=== PATIENT | male | born 1955 | race Caucasian/White ===

== ENCOUNTER 2023-03-04 09:27 | Day surgery (SDC) | payer MEDICARE, MEDICAID ==
[~2023-03-04] VITALS: Ht 167.6 cm; Wt 90.7 kg
[~2023-03-04 09:27] MED LIST: AMLODIPINE BESY10 MG PO; BAYER ASPIRIN E81 MG PO; LOSARTAN POTASS1 TA4 PO; MAGNESIUM OXID400 M1 PO; MULTIVITAMIN ME1 TAB PO; POT CHLORIDE20 ME2 PO; VITAMIN B-121000 MCG PO; [UNRECOGNIZED DRUG - OTHER] PO
[2023-03-04 12:01] VITALS: BP 154/78
== END 2023-03-04 11:55 | disposition home or self-care (01) ==
LOC: ENDO 09:27 → ORM 13:10
PROVIDERS: ATTEND Internal Medicine Gastroenterology
PROC: 0DB98ZX Excision of Duodenum, Via Natural or Artificial Opening Endoscopic, Diagnostic (ICD-10-PCS; principal; 2023-03-04)
PROC: 0DB78ZX Excision of Stomach, Pylorus, Via Natural or Artificial Opening Endoscopic, Diagnostic (ICD-10-PCS; 2023-03-04)
PROC: 0DB48ZX Excision of Esophagogastric Junction, Via Natural or Artificial Opening Endoscopic, Diagnostic (ICD-10-PCS; 2023-03-04)
PROC: 0DJD8ZZ Inspection of Lower Intestinal Tract, Via Natural or Artificial Opening Endoscopic (ICD-10-PCS; 2023-03-04)
DX: K29.70 Gastritis, unspecified, without bleeding (principal); K29.80 Duodenitis without bleeding; K44.9 Diaphragmatic hernia without obstruction or gangrene; Z12.11 Encounter for screening for malignant neoplasm of colon; K57.30 Diverticulosis of large intestine without perforation or abscess without bleeding; K64.8 Other hemorrhoids; I10 Essential (primary) hypertension; Z80.0 Family history of malignant neoplasm of digestive organs
CPT/HCPCS: 43239; G0105

== ENCOUNTER 2024-09-30 10:23 | Inpatient (IN) | payer MEDICARE, MEDICAID ==
[~2024-09-30] VITALS: Ht 167.6 cm; Wt 78.4 kg
[2024-09-30] MEDS ORDERED: SYNTHROID25 MCG PO (10:46)
[2024-09-30] MEDS ORDERED: NORMODYNE/TRAN100 MG PO (10:47)
[2024-09-30] MEDS ORDERED: BETAMETH VAL0.1 % EX (10:48)
[2024-09-30] MEDS ORDERED: METHYLPRED4 MG PO (10:49)
[2024-09-30] MEDS ORDERED: LORTAB 5/3255 MG PO (10:50)
[2024-09-30 10:51] LABS: ALBUMIN 3.9 g/dL (3.2-5.0); BILIRUBIN, TOTAL 0.8 mg/dL (0.2-1.3); POTASSIUM 4.3 mmol/l (3.5-5.1); TOTAL PROTEIN 6.6 g/dL (6.3-8.2)
[2024-09-30 10:52] LABS: HEMATOCRIT 45.4 % (39.0-50.0); HEMOGLOBIN 14.7 g/dl (14.0-18.0); IMMATURE GRANULOCYTES 1.5 % (0.0-5.0); LYMPH% 11.2 % (15-41); MEAN CELL VOLUME 94.2 fL CALC (80.0-100.0); MEAN CORPUSCULAR HGB 30.5 pG CALC (26.0-32.0); MEAN CORPUSCULAR HGB CONC 32.4 g/dL CAL (32.0-36.0); MONO% 1.8 % (2-13); NEUT# 7.56 thou/uL (1.82-7.42); NEUT% 85.5 % (42-76); RED BLOOD COUNT 4.82 mill/uL (4.70-6.10); RED CELL DISTRI WIDTH 12.7 % (11.5-15.5)
[2024-09-30 11:00] VITALS: BP 147/74
[2024-09-30] MEDS ORDERED: ACETAMINOPHEN 325 MG/TAB PO PRN (11:05)
[2024-09-30] MEDS ORDERED: ALUM & MAG HYDROX-SIMETHICONE 30 ML PO PRN (11:10)
[2024-09-30] MEDS ORDERED: DEXTROSE 250 ML IV PRN (11:30)
[2024-09-30] MEDS ORDERED: DEXTROSE 50% 50 ML/SYR IV PRN (11:30)
--- NOTE | 2024-09-30 11:30 | NUR ---
PT IS ADMITTED TO THE FLOOR WITH SOB AND PNEUMONIA; PROVIDER IS AT BEDSIDE. PT IS A&O X4; STABLE. COUGH- NON PRODUCTIVE. PT IS ON TELE- NSR. PT CAN MOVE ALL EXTREMITIES. PT CAN MAKE HIS NEEDS KNOWN; PT STAES NO FURTHER NEEDS AT THIS TIME. BED ALARM IS ON AND CALL LIGHT IS WITHIN REACH.
[2024-09-30] MEDS ORDERED: PIPERACILLIN Sodium-Tazobactam 3.375 GM in SODIUM CHLORIDE 0.9% 100 ML IV SCH (12:00)
[2024-09-30] MEDS ORDERED: methylPREDNISolone Sod Succ 40 MG/ML SDV IV SCH (12:00)
[2024-09-30] MEDS ORDERED: guaiFENesin-CODEINE 200-20 MG/10 ML UDC PO PRN (12:35)
[2024-09-30] MEDS ORDERED: IPRATROPIUM-Albuterol 0.5MG-2.5MG/3 ML NEB PRN (12:35)
[2024-09-30] MEDS ORDERED: HYDROcodone 5 MG/Acetaminophen 325 MG/COMBO PO PRN (12:55)
[2024-09-30] MEDS ORDERED: INSULIN LISPRO 100 UNITS/ML ML SC SCH (13:00)
[2024-09-30] MEDS ORDERED: IPRATROPIUM-Albuterol 0.5MG-2.5MG/3 ML IN SCH (15:00)
[2024-09-30 15:29] VITALS: BP 137/73
--- NOTE | 2024-09-30 16:50 | NUR ---
PT'S CONDITION HAS IMPROVED. HEAD PAIN HAS DECREASED; PT IS STILL COUGHING THOUGH; ITS BECOMING MORE PRODUCTIVE. PT STATES WHEN HE COUGHS HARD; IT CREATES A SHARP PAIN AND HIS HEAD STARTS TO SWEAT. WILL MEDICATE NEEDED. BED ALARM IS ON; CALL LIGHT IS WITHIN REACH.
[2024-09-30 18:30] VITALS: BP 128/64
[2024-09-30 18:48] VITALS: BP 128/64
--- NOTE | 2024-09-30 20:00 | NUR ---
RECEIVED REPORT FROM NURSE IKE, PATIENT RESTING IN BED, RT IN ROOM, PATINET ON 3 LPM VIA NC. PATIENT TIGHT NON PRODUCTIVE COUGH, LUNG SOUNDS COARSE, SALINE LOCK NOTED ON RAC G 20 PATENT FLUSHES WELL, ON TELEMETRY, ACTIVE BOWEL SOUNDS, PRN TYLENOL GIVEN PRIOR TO SHIFT EFFECTIVE CALL LIGHT WITHIN REACHED.
[2024-09-30 20:22] VITALS: BP 130/63
[2024-09-30] MEDS ORDERED: LABETALOL HCL 100 MG/TAB PO SCH (21:00)
[2024-09-30] MEDS ORDERED: amLODIPine BESYLATE 5 MG/TAB PO SCH (21:00)
[2024-09-30] MEDS ORDERED: LORazepam 0.5 MG/TAB PO PRN (21:00)
[2024-09-30] MEDS ORDERED: Polyethylene Glycol 3350 17 GM/PKT PO PRN (21:00)
[2024-09-30 23:43] VITALS: BP 118/62
--- NOTE | 2024-09-30 23:53 | NUR ---
PATIENT CURRENTLY GETTING HIS BREATHING TREATMENT PATIENT REMAINS ON O2 @ 3LPM VIA NC, NOT IN DISTRESS, PATIENT REQUESTING COUGH MEDICATION.
[2024-10-01] VITALS (9 sets, daily range): BP systolic 118–144; BP diastolic 57–72
--- NOTE | 2024-10-01 04:42 | NUR ---
tiny awake requested for cough medication, breathing even unlabored, non productive cough call light within reached.
[2024-10-01 04:44] LABS: HEMATOCRIT 42.1 % (39.0-50.0); HEMOGLOBIN 13.9 g/dl (14.0-18.0); IMMATURE GRANULOCYTES 0.8 % (0.0-5.0); LYMPH% 4.8 % (15-41); MONO% 1.3 % (2-13); NEUT# 10.57 thou/uL (1.82-7.42); NEUT% 93.1 % (42-76); RED BLOOD COUNT 4.48 mill/uL (4.70-6.10); RED CELL DISTRI WIDTH 12.3 % (11.5-15.5)
[2024-10-01 05:02] LABS: ALBUMIN 3.7 g/dL (3.2-5.0); BILIRUBIN, TOTAL 0.8 mg/dL (0.2-1.3); CREATININE 0.9 mg/dL (0.7-1.3); MAGNESIUM 2.1 mg/dL (1.6-2.3); POTASSIUM 4.4 mmol/l (3.5-5.1); TOTAL PROTEIN 6.3 g/dL (6.3-8.2)
[2024-10-01] MEDS ORDERED: LEVOTHYROXINE SODIUM 25 MCG/TAB PO SCH (06:00)
--- NOTE | 2024-10-01 07:20 | NUR ---
PATIENT LYING IN BED AWAKE. BREATHING LABORED ON 4L NC. PT STATES TO NOT BE ABLE TO STOP COUGHING DESPITE DUO NEBS AND COUGH MEDICINE. HAS C/O OF HEADACHE;INFORMED PT PAIN MEDICATION WILL BE ADMINISTERED PER EMAR. TELE INTACT. IV IN RAC SL;SITE CLEAN AND INTACT. I/S AT BEDSIDE;PT UNDERSTANDS USE. BED IN LOWEST POSITION. PERSONAL ITEMS WELL CALL LIGHT WITHIN REACH. NO OTHER NEEDS AT THIS TIME. POC ONGOING.
[2024-10-01] MEDS ORDERED: SODIUM CHLORIDE 0.9% 1,000 ML IV PRN (10:00)
[2024-10-01] MEDS ORDERED: PIPERACILLIN Sodium-Tazobactam 4.5 GM in SODIUM CHLORIDE 0.9% 100 ML IV SCH (12:00)
--- NOTE | 2024-10-01 12:06 | NUR ---
PATIENT LYING SEMI-FOWLERS IN BED WATCHING TV AND EATING LUNCH. BREATHING UNLABORED ON 4L NC. TELE INTACT. PT DENIES ANY PAIN OR N/D/V AT THIS TIME. STATES HIS COUGH HAS GOTTEN BETTER. IV IN RAC INFUSING FLUIDS PER EMAR;SITE CLEAN AND INTACT. PERSONAL ITEMS WITHIN REACH WELL CALL LIGHT. BED IN LOWEST POSITION. NO OTHER NEEDS AT THIS TIME. POC ONGOING.
--- NOTE | 2024-10-01 16:28 | NUR ---
PATIENT LYING IN BED WATCHING TV. BREATHING UNOLABORED ON 4L NC. TELE INTACT. IV IN RAC INFUSING FLUIDS PER EMAR;SITE CLEAN AND INTACT. PT DENIES ANY PAIN OR N/D/V AT THIS TIME. STATES COUGH IS NOT BAD ANYMORE BUT STILL PRESENT. COUGH IS NONPRODUCTIVE AND DRY. DENIES ANY NEEDS AT THIS TIME. PERSONAL ITEMS WELL CALL LIGHT NEAR. BED IN LOWEST POSITION. POC ONGOING.
--- NOTE | 2024-10-01 20:00 | NUR ---
RECEIVED REPORT FROM NURSE LISA, PATIENT RESTING IN BED, BREATHING UNLABORED PATIENT COUGHING PATIENT STATED A LITTLE PRODUCTIVE, PATIENT ONGOING NS @ 80CC/HR INFUSING WELL, ON TELEMETRY, PATIENT on O2 @ 4LPM VIA NC SPO2 AT 93-94% DECREASED TO 3LPM, CALL LIGHT WITHIN REACHED.
[2024-10-01] MEDS ORDERED: INSULIN LISPRO 100 UNITS/ML ML SC SCH (22:00)
[2024-10-02] VITALS (8 sets, daily range): BP systolic 125–139; BP diastolic 49–71
--- NOTE | 2024-10-02 | NUR ---
PATIENT RESTING IN BED, EYES CLOSED, REMAINS ON O2 @ 3LPM VIA NC, NOT IN DISTRESS, CALL LIGHT WITHIN REACHED.
--- NOTE | 2024-10-02 04:50 | NUR ---
PATIENT RESTING IN BED, REMAINS ON O2 @ 3LPM VIA NC, BREATHING UNLABORED, CALL LIGT IN REACHED.
[2024-10-02 05:49] LABS: HEMATOCRIT 36.6 % (39.0-50.0); HEMOGLOBIN 12.2 g/dl (14.0-18.0); IMMATURE GRANULOCYTES 0.6 % (0.0-5.0); LYMPH% 3.3 % (15-41); MEAN CELL VOLUME 93.8 fL CALC (80.0-100.0); MEAN CORPUSCULAR HGB 31.3 pG CALC (26.0-32.0); MEAN CORPUSCULAR HGB CONC 33.3 g/dL CAL (32.0-36.0); MONO% 1.6 % (2-13); NEUT# 10.45 thou/uL (1.82-7.42); NEUT% 94.5 % (42-76); RED BLOOD COUNT 3.9 mill/uL (4.70-6.10); RED CELL DISTRI WIDTH 12.6 % (11.5-15.5)
[2024-10-02 06:05] LABS: BILIRUBIN, TOTAL 0.6 mg/dL (0.2-1.3); CREATININE 0.8 mg/dL (0.7-1.3); POTASSIUM 4.4 mmol/l (3.5-5.1); TOTAL PROTEIN 5.4 g/dL (6.3-8.2)
[2024-10-02 06:13] LABS: ALBUMIN 2.9 g/dL (3.2-5.0)
--- NOTE | 2024-10-02 07:22 | NUR ---
PATIENT LYING IN BED RECEIVING BREATHING TREATMENT. PATIENT A&OX3. BREATHING UNLABORED. TELE INTACT. IV IN RAC INFUSING FLUIDS PER EMAR;SITE CLEAN AND INTACT. PT DENIES ANY PAIN OR N/D/V AT THIS TIME. PT STATES TO STILL HAVE COUGH;PT WAS ALREADY MEDICATED EARLIER WITH COUGH MEDICINE. NO OTHER NEEDS AT THIS TIME. PERSONAL ITEMS WELL CALL LIGHT NEAR. BED IN LOWEST POSITION. POC ONGOING.
--- NOTE | 2024-10-02 12:22 | NUR ---
PATIENT SITTING UP IN BED WATCHING TV. BREATHING UNLABORED ON 4L NC. TELE INTACT. IV IN RAC INFUSING FLUIDS PER EMAR;SITE CLEAN AND INTACT. PT DENIES ANY PAIN OR N/D/V AT THIS TIME. STATES COUGH IS CONTROLLED. NO OTHER NEEDS AT THIS TIME. PERSONAL ITEMS WELL CALL LIGHT WITHIN REACH. BED IN LOWEST POSITION. POC ONGOING.
--- NOTE | 2024-10-02 16:30 | NUR ---
PATIENT LYING IN BED WATCHING TV. BREATHING UNLABORED ON 4L NC. TELE INTACT. IV IN RAC INFUSING FLUIDS PER EMAR;SITE CLEAN AND INTACT. PT DENIES ANY PAIN OR N/D/V AT THIS TIME. COUGH STILL CONTROLLED;MEDICATION ADMINISTERED PER EMAR;SITE CLEAN AND INTACT. NO OTHER NEEDS AT THIS TIME. PERSONAL ITEMS WITHIN REACH WELL CALL LIGHT. BED IN LOWEST POSITION. POC ONGOING.
--- NOTE | 2024-10-02 20:00 | NUR ---
PSTIENT SITTING UP IN BED WATCHING TV AT THI MOMENT. ALERT AND ORIENTED X3. RESPS ARE EVEN AND UNLABORED. NO DSITRESS NOTED. O2 IN PLACE VIA NC AT 2LPM. WHEEZES HEARD ON AUCULTATION. NONPRODUCTIVE COUGH ALSO NOTED. TELE MONITOR IN PLACE WITH LEAD INTACT AND WORKING WELL RUNNING [id number] AT THIS MOMENT. IVF FLUIDS NS PATENT AND INFUSING VIA RAC. IV SITE IS CLEAN AND HELATHY WITH NO ABNORMALITIES. STRONG PERIPHEARL PULSES TO TOUCH. CALL LIGHT IS WITHIN REACH AND SAFETY PRECAUTIONS IN PLACE.
--- NOTE | 2024-10-03 | NUR ---
PATIENT RESTING IN BED WITH EYES CLOSED. RESPS ARE EVEN AND UNLABORED. NO DISTRESS NOTED. O2 IN PLACE ORDERED. TELE MONITOR IN PLACE WITH LEADS INTACT AND WORKING WELL RUNNING SR -[id number]. CALL LIGHT IN REACH AND SAFETY PRECAUTIONS IN PLACE.
[2024-10-03 03:52] VITALS: BP 123/55
--- NOTE | 2024-10-03 04:00 | NUR ---
PT RESTING WITH HEAD OF THE BED SLIGHTLY ELEVATED AND EYES CLOSED. BREATHING IS EVEN AND UNLABORED WITH O2 IN PLACE. TELE MONITOR SHOWING [id number] AT THIS MOMENT. CALL LIGHT IS WITHIN REACH AND PLAN OF CARE ONGOING
[2024-10-03 05:28] LABS: BASO% 0.1 % (0-3); HEMATOCRIT 35.1 % (39.0-50.0); HEMOGLOBIN 11.6 g/dl (14.0-18.0); IMMATURE GRANULOCYTES 1.2 % (0.0-5.0); MEAN CELL VOLUME 95.1 fL CALC (80.0-100.0); MEAN CORPUSCULAR HGB 31.4 pG CALC (26.0-32.0); MONO% 4.3 % (2-13); NEUT# 9.75 thou/uL (1.82-7.42); NEUT% 89.4 % (42-76); RED BLOOD COUNT 3.69 mill/uL (4.70-6.10); RED CELL DISTRI WIDTH 12.8 % (11.5-15.5)
[2024-10-03 05:49] LABS: ALBUMIN 2.8 g/dL (3.2-5.0); BILIRUBIN, TOTAL 0.6 mg/dL (0.2-1.3); CREATININE 0.8 mg/dL (0.7-1.3); MAGNESIUM 2.1 mg/dL (1.6-2.3); POTASSIUM 4.4 mmol/l (3.5-5.1); TOTAL PROTEIN 5.3 g/dL (6.3-8.2)
[2024-10-03 07:05] VITALS: BP 149/69
--- NOTE | 2024-10-03 08:00 | NUR ---
Patient sitting in bed. POC discussed. Assessment completed. #20 RAC NS @80. Site appears healthy. Skin CDI. Call light within reach. Will continue to monitor
[2024-10-03] MEDS ORDERED: Polyethylene Glycol 3350 17 GM/PKT PO PRN (08:45)
[2024-10-03] MEDS ORDERED: predniSONE 20 MG/TAB PO SCH (09:00)
[2024-10-03] MEDS ORDERED: LEVOFLOXACIN750 MG PO (11:16)
[2024-10-03] MEDS ORDERED: PREDNISONE10 MG PO (11:17)
--- NOTE | 2024-10-03 12:00 | NUR ---
Discharge discussed w/ pt. IV removed; catheter intact. Tele removed. Patient getting dressed. Will be transported home by sister.
== END 2024-10-03 12:19 | disposition home or self-care (01) | DRG 193 ==
LOC: MS2 10:23
PROVIDERS: Nurse Practitioner Family; ADMIT Internal Medicine; ATTEND Internal Medicine
DX: J18.9 Pneumonia, unspecified organism (principal); J96.01 Acute respiratory failure with hypoxia; I10 Essential (primary) hypertension; E03.9 Hypothyroidism, unspecified; K21.9 Gastro-esophageal reflux disease without esophagitis
CPT/HCPCS: J1815; J2543; Q9967